=== PATIENT | male | born 1995 | race Caucasian/White ===

== ENCOUNTER 2016-06-08 11:46 | Emergency (ER) | payer SELFPAY ==
[2016-06-08] MEDS ORDERED: Sodium Chloride 0.9% 1,000 ML IV STA (12:22)
[2016-06-08] MEDS ORDERED: Ampicillin/Sulbactam 3 GM in Sodium Chloride 0.9% 100 ML IVPB ONE (12:26)
--- NOTE | 2016-06-08 12:32 | ED PDOC ---
HPI: General Adult Time Seen by Provider: 06/08/16 11:59 Chief Complaint (Nursing): ENT Problem Chief Complaint (Provider): ENT Problem History Per: Patient History/Exam Limitations: no limitations Onset/Duration Of Symptoms: Days (x3 days) Current Symptoms Are (Timing): Still Present Additional Complaint(s): 21 y/o male who presents to the emergency department with a complaint of a left sided throat pain that gradually worsened within 3 days. Patient reports visiting Urgent Care today, diagnosed with possible peritonsillar abscess, and referred to the emergency department for further evaluation. States he had never experienced similar symptoms in the past. Denies fever, chills or shortness of breath. PMD: Dr. Jose Enrique Ott MD Past Medical History Reviewed: Historical Data, Nursing Documentation, Vital Signs Vital Signs: Last Vital Signs Temp 98 F 06/08/16 11:56 Pulse 68 06/08/16 11:56 Resp 20 06/08/16 11:56 BP 137/87 06/08/16 11:56 Pulse Ox 98 06/08/16 15:58 - Medical History PMH: No Chronic Diseases - Surgical History Surgical History: No Surg Hx - Family History Family History: States: Unknown Family Hx - Social History Current smoker - smoking cessation education provided: No Ex-Smoker (has not smoked in the last 12 months): Yes Alcohol: Social Drugs: Denies - Home Medications Home Medications: Ambulatory Orders Medication Instructions Recorded Amoxicillin/Clavulanate [Augmentin 1 tab PO BID #20 tab 06/08/16 875 MG-125 MG] predniSONE [predniSONE Tab] 20 mg PO DAILY #12 tab 06/08/16 - Allergies Allergies/Adverse Reactions: Allergies Allergy/AdvReac Type Severity Reaction Status Date / Time No Known Allergies Allergy Verified 06/08/16 12:04 Review of Systems ROS Statement: Except As Marked, All Systems Reviewed And Found Negative Constitutional: Negative for: Fever, Chills ENT: Positive for: Throat Pain (Left-sided) Respiratory: Negative for: Shortness of Breath Physical Exam - Reviewed Nursing Documentation Reviewed: Yes Vital Signs Reviewed: Yes - Physical Exam Appears: Positive for: Non-toxic, No Acute Distress Head Exam: Positive for: ATRAUMATIC, NORMOCEPHALIC Skin: Positive for: Normal Color, Warm, Dry Eye Exam: Positive for: Normal appearance. Negative for: Conjunctival injection ENT: Positive for: Pharyngeal Erythema (Mild), Tonsillar Swelling (Extreme swelling of the left tonsil). Negative for: Normal ENT Inspection Neck: Positive for: Normal, Supple Cardiovascular/Chest: Positive for: Regular Rate, Rhythm. Negative for: Murmur Respiratory: Positive for: Normal Breath Sounds. Negative for: Accessory Muscle Use, Respiratory Distress Neurologic/Psych: Positive for: Alert, Oriented - Laboratory Results Result Diagrams: 06/08/16 12:45 06/08/16 12:45 - ECG O2 Sat by Pulse Oximetry: 98 (RA) Pulse Ox Interpretation: Normal Medical Decision Making Medical Decision Making: Time: 11:59 Initial impression: Peritonsillar Abscess Initial plan: --Neck Soft Tissue w/ contrast (CT) --COMP Metabolic Panel --CBC w/ differential --Decadron Inj 10 mg IVP --Sodium Chloride 1,000 ml IV 500 mls/hr --UNSYN 3 GM IV Q6 --Blood Culture Stat --Revaluation Time: 15:38 --Soft Tissue Neck CT FINDINGS: NASOPHARYNX: Unremarkable. SUPRAHYOID NECK: Vfoc-ru-mvqrrlqf enlargement of the tonsils bilaterally. No evidence of discrete abscess formation. hypodense mildly enlargement of the soft palate seen. Otherwise the oropharynx, oral cavity, parapharyngeal space and retropharyngeal space are grossly unremarkable. . INFRAHYOID NECK: Unremarkable larynx, hypopharynx, and supraglottic space. Vocal cords intact. MASS: None. GLANDS: Parotid and submandibular glands unremarkable. Normal size thyroid gland, without nodule. LYMPH NODES: Mildly enlarged upper neck lymph nodes slightly more on the left. CERVICAL SPINE: No fracture or focal lesion. VASCULAR STRUCTURES: Unremarkable. OTHER FINDINGS: Complete opacification of the visualized portion of the left maxillary sinus is noted. IMPRESSION: Bilateral vhyv-be-ulnfgthg enlargement of the tonsils without evidence of discrete abscess formation. Mild hypodense enlargement of the soft palate seen could be also due to infection or inflammatory process. Mildly enlarged upper neck lymph nodes left slightly more than right. Complete opacification of the visualized portion of the left maxillary sinus. 15:56 - Aware of labs and CT reports. Will evaluate patient. 16:02 - Discussed disposition with Dr. Ernst who has seen and evaluated patient. Scribe Attestation: Documented by Asha Hernandez, acting as a scribe for Padmini Davies PA-C. Provider Scribe Attestation: All medical record entries made by the Scribe were at my direction and personally dictated by me. I have reviewed the chart and agree that the record accurately reflects my personal performance of the history, physical exam, medical decision making, and the department course for this patient. I have also personally directed, reviewed, and agree with the discharge instructions and disposition. Disposition - Clinical Impression Clinical Impression: Tonsillitis - Patient ED Disposition Is Patient to be Admitted: No Counseled Patient/Family Regarding: Diagnosis, Need For Followup, Rx Given - Disposition Referrals: [facility] [Outside] Disposition: Routine/Home Disposition Time: 16:02 Condition: GOOD Prescriptions: Amoxicillin/Clavulanate [Augmentin 875 MG-125 MG] 1 tab PO BID #20 tab predniSONE [predniSONE Tab] 20 mg PO DAILY #12 tab Instructions: Tonsillitis (ED)
[2016-06-08 13:07] LABS: BASO % 0.2 % (0.0-2.0); EOS % 0.1 % (0.0-4.0); HEMATOCRIT 45.4 % (35.0-51.0); LYMPH # 1.3 K/uL (1.0-4.3); LYMPH % 9.8 % (20.0-40.0); MEAN CELL VOLUME 91.1 fl (80.0-94.0); MEAN CORPUSCULAR HEMOGLOBIN 30.9 pg (27.0-31.0); MEAN CORPUSCULAR HGB CONC 33.9 g/dL (33.0-37.0); MEAN PLATELET VOLUME 10.3 fl (7.2-11.7); MONO # 1.4 K/uL (0.0-0.8); MONO % 9.9 % (0.0-10.0); PLATELET COUNT 145 K/uL (130-400); RED CELL DISTRIBUTION WIDTH 13.2 % (11.5-14.5); WHITE BLOOD COUNT 13.8 K/uL (4.8-10.8)
[2016-06-08 13:18] LABS: ALB/GLOB RATIO 1.2 (1.0-2.1); ALKALINE PHOSPHATASE 67 U/L (38-126); ALT/SGPT 32 U/L (21-72); AST/SGOT 22 U/L (17-59); BILIRUBIN,TOTAL 1.7 mg/dl (0.2-1.3); BLOOD UREA NITROGEN 14 mg/dl (9-20); CALCIUM 10.1 mg/dL (8.4-10.2); CARBON DIOXIDE 30 mmol/L (22-30); CHLORIDE 99 mmol/L (98-107); GFR AFRICAN-AMERICAN > 60; GLUCOSE,RANDOM 82 mg/dL (75-110); POTASSIUM 3.4 MMOL/L (3.6-5.0); SODIUM 143 mmol/l (132-148); TOTAL PROTEIN 8.2 G/DL (6.3-8.2)
[2016-06-08] MEDS ORDERED: Sodium Chloride 0.9% 50 ML IV ONE (13:42)
[2016-06-08] MEDS ORDERED: Iohexol 300 100 ML IJ ONE (13:42)
[2016-06-08 14:36] LABS: NEUTROPHIL 84 % (42-75); TOTAL CELLS COUNTED 100
--- NOTE | 2016-06-08 15:39 | CT ---
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 Coronal and sagittal reformats generated. Intravenous contrast dose: 95 cc of Omnipaque 300 Radiation dose: DLP 401.39 mGy-cm FINDINGS: NASOPHARYNX: Unremarkable. SUPRAHYOID NECK: Qfux-wr-garbunkv enlargement of the tonsils bilaterally. No evidence of discrete abscess formation. hypodense mildly enlargement of the soft palate seen. Otherwise the oropharynx, oral cavity, parapharyngeal space and retropharyngeal space are grossly unremarkable. . INFRAHYOID NECK: Unremarkable larynx, hypopharynx, and supraglottic space. Vocal cords intact. MASS: None. GLANDS: Parotid and submandibular glands unremarkable. Normal size thyroid gland, without nodule. LYMPH NODES: Mildly enlarged upper neck lymph nodes slightly more on the left. CERVICAL SPINE: No fracture or focal lesion. VASCULAR STRUCTURES: Unremarkable. OTHER FINDINGS: Complete opacification of the visualized portion of the left maxillary sinus is noted. IMPRESSION: Bilateral dqoi-ys-yfnkjdow enlargement of the tonsils without evidence of discrete abscess formation. Mild hypodense enlargement of the soft palate seen could be also due to infection or inflammatory process. Mildly enlarged upper neck lymph nodes left slightly more than right. Complete opacification of the visualized portion of the left maxillary sinus.
[2016-06-08 16:22] VITALS: BP 132/74; PULSE 85; RESP 19; TEMP 98.3; O2SAT 97
== END 2016-06-08 16:23 | disposition home or self-care (01) ==
LOC: H.ER 11:46
DX: J03.90 Acute tonsillitis, unspecified (principal); R07.0 Pain in throat; R59.0 Localized enlarged lymph nodes
CPT/HCPCS: 70491; 80053; 85025; 87040; 96374; 99284; J0295; J1100; J7040; Q9967